=== PATIENT | female | born 2005 | race African-American/Black ===

== ENCOUNTER 2025-01-04 23:02 | Emergency (ER) | payer OTHER ==
[2025-01-04 23:06] VITALS: BP 123/90; PULSE 100; RESP 18; TEMP 98.1; BMI 21.2
[2025-01-04] MEDS ORDERED: IBUPROFEN 600 MG TABLET (FP) PO ONE (23:19)
[2025-01-04] MEDS ORDERED: METHOCARBAMOL 500 MG TABLET ONE (23:20)
[2025-01-04] MEDS: IBUPROFEN 600 MG TABLET (FP) PO ONE (23:25)
[2025-01-04] MEDS: METHOCARBAMOL 500 MG TABLET PO ONE (23:25)
== END 2025-01-04 23:41 | disposition home or self-care (01) ==
LOC: JERFT 23:02
DX: M25.512 Pain in left shoulder (principal); M25.612 Stiffness of left shoulder, not elsewhere classified; V48.6XXA Car passenger injured in noncollision transport accident in traffic accident, initial encounter
CPT/HCPCS: 73030-TC-LT-FY; 99283-25